=== PATIENT | male | born 1975 | race Caucasian/White ===

== ENCOUNTER 2018-07-03 15:11 | Emergency (ER) | payer BC, OTHER ==
[~2018-07-03] VITALS: Ht 172.7 cm; Wt 113.4 kg
[2018-07-03] MEDS ORDERED: CELEXA10 MG PO (15:53)
[2018-07-03] MEDS ORDERED: MOBIC7.5 MG PO (16:58)
[2018-07-03 17:22] VITALS: BP 141/100
== END 2018-07-03 17:23 | disposition home or self-care (01) ==
LOC: ER 15:11
DX: M25.462 Effusion, left knee (principal); F17.210 Nicotine dependence, cigarettes, uncomplicated